=== PATIENT | female | born 1960 | race Caucasian/White ===

== ENCOUNTER 2018-02-03 15:37 | Inpatient (IN) | payer OTHER ==
--- NOTE | 2018-02-03 15:47 | PDOC ---
Rapid Medical Evaluation Chief Complaint: Shortness of Breath Time Seen by Provider: 02/03/18 15:40 Medical Evaluation: 02/03/18 15:40 I have performed a brief in-person evaluation of this patient. The patient presents with a chief complaint of: SOB with gradual worsening of color x 1 week. Pertinent physical exam findings: Jaundice, with weakness/ abd pain. Sent from Dr Garcia office for admission I have ordered the following: CXR, CBC, CMP, PT/INR/ type and screen The patient will proceed to the ED for further evaluation. 02/03/18 15:47 Discharge Disposition - Diagnosis Melena - Referrals - Patient Instructions - Post Discharge Activity
--- NOTE | 2018-02-03 15:57 | PDOC ---
History of Present Illness - General Chief Complaint: Shortness of Breath Stated Complaint: SOB (PCP SENT) Time Seen by Provider: 02/03/18 15:40 - History of Present Illness Initial Comments: 02/03/18 15:57 Ms. Jauregui is a 57 yo female w/ pmh of hiatal hernia who presents for evaluation of 3 week history of dyspnea on exertion, generalized weakness, and per family worsening color (reported yellowing of skin). Patient also complaining of abdominal pain. Patient was sent in by PCP (Brian) for admission for suspected GI bleed (positive stool guaic in office). Past History - Past Medical History Allergies/Adverse Reactions: Allergies Allergy/AdvReac Type Severity Reaction Status Date / Time No Known Allergies Allergy Verified 02/03/18 15:41 COPD: No - Suicide/Smoking/Psychosocial Hx Smoking History: Never smoked Review of Systems - Review of Systems Comments:: 02/03/18 16:21 GENERAL/CONSTITUTIONAL: No fever or chills. No weakness. HEAD, EYES, EARS, NOSE AND THROAT: No change in vision. No ear pain or discharge. No sore throat. CARDIOVASCULAR: No chest pain or shortness of breath RESPIRATORY: No cough, wheezing, or hemoptysis. GASTROINTESTINAL: +Abdominal pain; nausea as described w/out vomiting; dark stool over same timer period GENITOURINARY: No dysuria, frequency, or change in urination. MUSCULOSKELETAL: No joint or muscle swelling or pain. No neck or back pain. SKIN: No rash NEUROLOGIC: No headache, vertigo, loss of consciousness, or change in strength/ sensation. ENDOCRINE: No increased thirst. No abnormal weight change HEMATOLOGIC/LYMPHATIC: No anemia, easy bleeding, or history of blood clots. ALLERGIC/IMMUNOLOGIC: No hives or skin allergy. *Physical Exam - Vital Signs Last Vital Signs Temp Pulse Resp BP Pulse Ox 98 F 90 20 119/45 L 100 02/03/18 15:41 02/03/18 15:41 02/03/18 15:41 02/03/18 15:41 02/03/18 15:41 - Physical Exam Comments: 02/03/18 16:21 GENERAL: Awake, alert, and fully oriented, in no acute distress HEAD: No signs of trauma, normocephalic, atraumatic EYES: PERRLA, EOMI, sclera anicteric, conjunctiva clear ENT: Auricles normal inspection, hearing grossly normal, nares patent, oropharynx clear without exudates. Moist mucosa NECK: Normal ROM, supple, no lymphadenopathy, JVD, or masses LUNGS: No distress, speaks full sentences, clear to auscultation bilaterally HEART: Regular rate and rhythm, normal S1 and S2, no murmurs, rubs or gallops, peripheral pulses normal and equal bilaterally. ABDOMEN: Soft, nontender, normoactive bowel sounds. No guarding, no rebound. No masses EXTREMITIES: Normal inspection, Normal range of motion, no edema. No clubbing or cyanosis. NEUROLOGICAL: Cranial nerves II through XII grossly intact. Normal speech, normal gait, no focal sensorimotor deficits SKIN: Warm, Dry, normal turgor, no rashes or lesions noted. Moderate Sedation - Procedure Monitoring Vital Signs: Procedure Monitoring Vital Signs Temperature 98 F 02/03/18 15:41 Pulse Rate 90 02/03/18 15:41 Respiratory Rate 20 02/03/18 15:41 Blood Pressure 119/45 L 02/03/18 15:41 O2 Sat by Pulse Oximetry (%) 100 02/03/18 15:41 ED Treatment Course - LABORATORY CBC & Chemistry Diagram: 02/03/18 16:00 02/03/18 16:00 Medical Decision Making - Medical Decision Making 02/03/18 16:49 Ms. Jauregui is a 57 yo female w/ pmh as described who presents for evaluation of symptoms concerning for GI bleed. Patient noted to be extremely pale w/ generalized weakness; according workup started. Labs revealed anemia as below. Patient consented for blood transfusion and 2 units ordered. 02/03/18 17:06 Admitting patient for suspected GI bleed and GI f/u. Laboratory Results - last 24 hr 02/03/18 02/03/18 02/03/18 16:00 16:00 16:00 WBC 4.0 RBC 2.90 L Hgb 4.3 L* Hct 15.6 L MCV 53.8 L MCH 14.9 L MCHC 27.7 L RDW 21.4 H Plt Count 544 H MPV 8.8 Absolute Neuts (auto) 2.9 Neutrophils % 71.0 Lymphocytes % 20.8 Monocytes % 7.3 Eosinophils % 0.4 Basophils % 0.5 Nucleated RBC % 2 H Hypochromia 3+ Platelet Estimate Increased Platelet Comment No clumping noted Anisocytosis 3+ PT with INR 12.10 INR 1.03 Sodium 141 Potassium 4.1 Chloride 110 H Carbon Dioxide 21 Anion Gap 10 BUN 10 Creatinine 0.7 Creat Clearance w eGFR > 60 Random Glucose 104 Calcium 8.0 L Total Bilirubin 0.6 AST 11 L ALT 11 L Alkaline Phosphatase 72 Total Protein 7.1 Albumin 3.9 Crossmatch 02/03/18 16:00 WBC RBC Hgb Hct MCV MCH MCHC RDW Plt Count MPV Absolute Neuts (auto) Neutrophils % Lymphocytes % Monocytes % Eosinophils % Basophils % Nucleated RBC % Hypochromia Platelet Estimate Platelet Comment Anisocytosis PT with INR INR Sodium Potassium Chloride Carbon Dioxide Anion Gap BUN Creatinine Creat Clearance w eGFR Random Glucose Calcium Total Bilirubin AST ALT Alkaline Phosphatase Total Protein Albumin Crossmatch See Detail *DC/Admit/Observation/Transfer Diagnosis at time of Disposition: Melena GI bleed Qualifiers: GI bleed type/associated pathology: unspecified gastrointestinal hemorrhage type Qualified Code(s): K92.2 - Gastrointestinal hemorrhage, unspecified - Discharge Dispostion Decision to Admit order: Yes - Referrals Referrals: Reuben Torres MD [Primary Care Provider] - - Patient Instructions - Post Discharge Activity
[2018-02-03] MEDS ORDERED: PANTOPRAZOLE SODIUM 40 MG VIAL IVPUSH ONE (16:16)
[2018-02-03 16:18] LABS: BASO % 0.5 % (0-2.0); EOS % 0.4 % (0-4.5); HEMATOCRIT 15.6 % (32.4-45.2); LYMPH % 20.8 % (8-40); MCH 14.9 pg (25.7-33.7); MCHC 27.7 g/dl (32.0-36.0); MEAN CELL VOLUME 53.8 fl (80-96); MEAN PLT VOLUME 8.8 fl (7.5-11.1); MONO % 7.3 % (3.8-10.2); PLATELET COUNT 544 K/MM3 (134-434); RDW 21.4 % (11.6-15.6)
--- NOTE | 2018-02-03 16:19 | PDOC ---
Attending Attestation - HPI HPI: 02/03/18 16:24 57 yo female with a pmh of hiatal hernia who presents to the emergency department for melena and a 3 week history of LARSON. Patient reports being sent in by PCP for melena and generalized weakness. Patient reports abdominal pain. Patient was sent by Dr. Torres for suspected GI bleed after having positive stool guaic in office. Patient endorses nausea without vomiting. PCP: Dr. Torres <Daryn Sal - Last Filed: 02/03/18 16:27> - Resident Resident Name: Mendoza Moreau - ED Attending Attestation I have performed the following: I have examined & evaluated the patient, The case was reviewed & discussed with the resident, I agree w/resident's findings & plan, Exceptions are as noted - Physicial Exam PE: GENERAL: Awake, alert, and fully oriented, in no acute distress. +Pallor. HEAD: No signs of trauma EYES: PERRLA, EOMI, sclera anicteric, conjunctiva clear ENT: Auricles normal inspection, hearing grossly normal, nares patent, oropharynx clear without exudates. Moist mucosa NECK: Normal ROM, supple, no lymphadenopathy, JVD, or masses LUNGS: Breath sounds equal, clear to auscultation bilaterally. No wheezes, and no crackles HEART: Regular rate and rhythm, normal S1 and S2, no murmurs, rubs or gallops ABDOMEN: Soft, nontender, normoactive bowel sounds. No guarding, no rebound. No masses EXTREMITIES: Normal range of motion, no edema. No clubbing or cyanosis. No cords, erythema, or tenderness NEUROLOGICAL: Cranial nerves II through XII grossly intact. Normal speech, normal gait. Motor and sensation intact. SKIN: Warm, Dry, normal turgor, no rashes or lesions noted. - Medical Decision Making Pt with melena, positive stool guaiac as an outpaient. Sent by Dr. Torres for admission. Hb found to be 4.3. Will consult GI, transfuse, and admit. <Dyana Padilla - Last Filed: 02/03/18 16:31> Attestations - Attestations Documentation prepared by Daryn Sal, acting as medical field representative for Dyana Padilla MD. <Daryn Sal - Last Filed: 02/03/18 16:27>
[2018-02-03 16:20] LABS: HEMOGLOBIN 4.3 GM/dL (10.7-15.3)
[2018-02-03 16:30] LABS: INR 1.03 (0.83-1.09); PROTHROMBIN TIME (PATIENT) 12.1 SEC (9.7-13.0)
[2018-02-03] MEDS ORDERED: PANTOPRAZOLE SODIUM 40 MG/100 ML BAG IVPB ONE (16:33)
[2018-02-03 16:36] LABS: PLATELET ESTIMATE INCREASED
[2018-02-03 16:37] LABS: ANISOCYTOSIS 3+
[2018-02-03 16:42] LABS: ALBUMIN 3.9 g/dl (3.4-5.0); ALK PHOS 72 U/L (45-117); ANION GAP 10 MMOL/L (8-16); BILIRUBIN,TOTAL 0.6 mg/dL (0.2-1); BLOOD UREA NITROGEN 10 mg/dL (7-18); CHLORIDE 110 mmol/L (98-107); CO2 21 mmol/L (21-32); CREATININE 0.7 mg/dL (0.55-1.3); GLUCOSE,RANDOM 104 mg/dL (74-106); POTASSIUM 4.1 mmol/L (3.5-5.1); SGOT/AST 11 U/L (15-37); SGPT/ALT 11 U/L (13-61); SODIUM 141 mmol/L (136-145); TOT PROT 7.1 g/dl (6.4-8.2)
[2018-02-03] MEDS: PANTOPRAZOLE SODIUM 80 MG in SODIUM CHLORIDE 100 ML IVPB SCH (19:19)
[2018-02-03] MEDS ORDERED: BISACODYL 10 MG SUPP.RECT PR PRN (21:44)
--- NOTE | 2018-02-03 22:01 | HP ---
CHIEF COMPLAINT: LARSON, weakness PCP: Dr. Torres HISTORY OF PRESENT ILLNESS: 57 year old female with a PMH significant for Hiatal hernia, SBO, and colitis presented to the ED with several days of weakness, SOB, and abdominal pain. She reports several episodes of dark stool over the past week. At her PCP's office today, she had a +FOB at her PCP and was advised to go to the ED. Daughter provided translation and history. Patient reports she was diagnosed with a hiatal hernia approximately 5 years ago which made it difficult for her to swallow. She saw a GI specialist and had an endoscopy. They recommended surgical repair, but she lost her insurance coverage. The difficulty in swallowing has caused her to eat less and she has lost about 6 lbs in the past week. She has always had chronic GI issues with abdominal pain and constipation. She was told she had colitis as a child. Otherwise, she reports she is in very good health. Denies hemoptysis, QUINN, syncope, chest pain, palpitations, n/v, itchness or rash. Upon admission to the ED, labs notable for Hgb of 4.3. CT of abdomen and pelvis showed hiatal hernia but no other acute process. 2U PRBC was ordered and she was started on a protonix drip. Patient reports still feeling weak since her admission. Recent Travel: No PAST MEDICAL HISTORY: Hiatal hernia Anemia Colitis PAST SURGICAL HISTORY: Denies Social History: , 2 children, Wolof speaking Smoking: Never Alcohol: Social Drugs: Denies Family History: Grandmother: Stomach cancer Grandfather: [place] Father: Chronic lung problems Allergies No Known Allergies Allergy (Verified 02/03/18 15:41) HOME MEDICATIONS: Home Medications Medication Instructions Recorded NK [No Known Home Medication] 02/03/18 REVIEW OF SYSTEMS CONSTITUTIONAL: (+) generalized weakness, loss of appetite, weight loss (6 lbs since thanksgi) Absent: fever, chills, diaphoresis, , malaise, HEENT: Absent: rhinorrhea, nasal congestion, throat pain, throat swelling, difficulty swallowing, mouth swelling, ear pain, eye pain, visual changes CARDIOVASCULAR: Absent: chest pain, syncope, palpitations, irregular heart rate, lightheadedness , peripheral edema RESPIRATORY: (+) shortness of breath, dyspnea with exertion Absent: cough, orthopnea, wheezing, stridor, hemoptysis GASTROINTESTINAL: (+) abdominal pain, melena Absent: abdominal distension, nausea, vomiting, diarrhea, constipation, hematochezia GENITOURINARY: Absent: dysuria, frequency, urgency, hesitancy, hematuria, flank pain, genital pain MUSCULOSKELETAL: Absent: myalgia, arthralgia, joint swelling, back pain, neck pain SKIN: (+) pallor Absent: rash, itching HEMATOLOGIC/IMMUNOLOGIC: Absent: easy bleeding, easy bruising, lymphadenopathy, frequent infections ENDOCRINE: Absent: unexplained weight gain, unexplained weight loss, heat intolerance, cold intolerance NEUROLOGIC: Absent: headache, focal weakness or paresthesias, dizziness, unsteady gait, seizure, mental status changes, bladder or bowel incontinence PSYCHIATRIC: Absent: anxiety, depression, suicidal or homicidal ideation, hallucinations. PHYSICAL EXAMINATION Vital Signs - 24 hr 02/03/18 02/03/18 02/03/18 15:41 16:19 17:42 Temperature 98 F 97.9 F Pulse Rate 90 Pulse Rate [ 74 Left Radial] Respiratory 20 Rate Blood Pressure 119/45 L Blood Pressure 107/62 [Left Arm] O2 Sat by Pulse 100 100 99 Oximetry (%) GENERAL: Pale, fatigued, awake, alert, and fully oriented, in no acute distress. HEAD: Normal with no signs of trauma. EYES: Pupils equal, round and reactive to light, extraocular movements intact, sclera anicteric, conjunctiva clear. No lid lag. EARS, NOSE, THROAT: Nares patent, oropharynx clear without exudates. Moist mucous membranes. NECK: Normal range of motion, supple without lymphadenopathy, JVD, or masses. LUNGS: Breath sounds equal, clear to auscultation bilaterally. No wheezes, and no crackles. No accessory muscle use. HEART: Regular rate and rhythm, normal S1 and S2 without murmur, rub or gallop. ABDOMEN: Soft, nontender, not distended, normoactive bowel sounds, no guarding, no rebound, no masses. No hepatomegaly or splenomegaly. MUSCULOSKELETAL: Normal range of motion at all joints. No bony deformities or tenderness. No CVA tenderness. UPPER EXTREMITIES: 2+ pulses, warm, well-perfused. No cyanosis. No clubbing. No peripheral edema. LOWER EXTREMITIES: 2+ pulses, warm, well-perfused. No calf tenderness. No peripheral edema. NEUROLOGICAL: No facial droop, tongue midline, normal speech. Normal gait. PSYCHIATRIC: Cooperative. Good eye contact. Appropriate mood and affect. SKIN: Generalized palor, warm, dry, normal turgor, no rashes or lesions noted, normal capillary refill. Laboratory Results - last 24 hr 02/03/18 02/03/18 02/03/18 16:00 16:00 16:00 WBC 4.0 RBC 2.90 L Hgb 4.3 L* Hct 15.6 L MCV 53.8 L MCH 14.9 L MCHC 27.7 L RDW 21.4 H Plt Count 544 H MPV 8.8 Absolute Neuts (auto) 2.9 Neutrophils % 71.0 Lymphocytes % 20.8 Monocytes % 7.3 Eosinophils % 0.4 Basophils % 0.5 Nucleated RBC % 2 H Hypochromia 3+ Platelet Estimate Increased Platelet Comment No clumping noted Anisocytosis 3+ PT with INR 12.10 INR 1.03 Sodium 141 Potassium 4.1 Chloride 110 H Carbon Dioxide 21 Anion Gap 10 BUN 10 Creatinine 0.7 Creat Clearance w eGFR > 60 Random Glucose 104 Calcium 8.0 L Total Bilirubin 0.6 AST 11 L ALT 11 L Alkaline Phosphatase 72 Total Protein 7.1 Albumin 3.9 Blood Type Antibody Screen Crossmatch 02/03/18 02/03/18 02/03/18 16:00 16:40 21:07 WBC RBC Hgb Hct MCV MCH MCHC RDW Plt Count MPV Absolute Neuts (auto) Neutrophils % Lymphocytes % Monocytes % Eosinophils % Basophils % Nucleated RBC % Hypochromia Platelet Estimate Platelet Comment Anisocytosis PT with INR INR Sodium Potassium Chloride Carbon Dioxide Anion Gap BUN Creatinine Creat Clearance w eGFR Random Glucose Calcium Total Bilirubin AST ALT Alkaline Phosphatase Total Protein Albumin Blood Type O POSITIVE O POSITIVE O POSITIVE Antibody Screen Negative Crossmatch See Detail Imaging Abdominal/pelvis CT: No definite CT findings of acute pathology identified. Moderate to large hiatal hernia. ASSESSMENT/PLAN: 57 year old female with a PMH significant for Hiatal hernia, SBO, and colitis presented to the ED with several days of weakness and SOB, she had a +FOB at her PCP and was advised to go to the ED. She was found to have a Hgb of 4.3 and was given 2U PRBC. She was admitted to r/o GI bleed. R/o GI Bleed - Hx of Hiatial Hernia, visulalized on CT - Reports diagnosed with colitis in childhood - SBO in march - +FOB at PCP - Several days of dark stools - H&H 4.3/15.6 - 2U PRBC ordered - Monitor CBC - GI consult with Dr. Hobson pending Constipation - Ducolax qday Prophylaxis - DVT: Heparin SQ - GI: Protonix drip FEN - PO intake adequate - Replete as needed - Clear liquid diet until cleared by GI. Disp: Patient requires further inpatient monitoring. Visit type - Emergency Visit Emergency Visit: Yes ED Registration Date: 02/03/18 Care time: The patient presented to the Emergency Department on the above date and was hospitalized for further evaluation of their emergent condition. - New Patient This patient is new to me today: Yes Date on this admission: 02/04/18 - Critical Care Critical Care patient: No
[2018-02-04 10:12] LABS: HEMATOCRIT 22.7 % (32.4-45.2); MEAN CELL VOLUME 63.4 fl (80-96); MEAN PLT VOLUME 8.8 fl (7.5-11.1); PLATELET COUNT 351 K/MM3 (134-434); RBC 3.58 M/mm3 (3.60-5.2); RDW 29.7 % (11.6-15.6); WHITE BLOOD COUNT 4.2 K/mm3 (4.0-10.0)
[2018-02-04 10:16] LABS: HEMOGLOBIN 6.8 GM/dL (10.7-15.3)
[2018-02-04] MEDS: HEPARIN NA (PORCINE) 5,000 UNITS/ML 1ML VIAL SQ SCH ×2 (10:33→18:00)
[2018-02-04 10:53] LABS: ANION GAP 10 MMOL/L (8-16); BLOOD UREA NITROGEN 11 mg/dL (7-18); CHLORIDE 110 mmol/L (98-107); CO2 20 mmol/L (21-32); CREATININE 0.6 mg/dL (0.55-1.3); GLUCOSE,RANDOM 88 mg/dL (74-106); MAGNESIUM 2.3 mg/dL (1.8-2.4); SODIUM 140 mmol/L (136-145)
--- NOTE | 2018-02-04 13:24 | PN ---
Progress Note (short form) - Note Progress Note: Events noted Pt has h/o dark colored stools No stools today No nausea No abd pain family at bedside Vital Signs - 24 hr 02/03/18 02/03/18 02/03/18 15:41 16:19 17:07 Temperature 98 F 97.9 F 98.5 F Pulse Rate 90 77 Pulse Rate [ 74 Left Radial] Respiratory 20 18 Rate Blood Pressure 119/45 L 122/65 Blood Pressure 107/62 [Left Arm] O2 Sat by Pulse 100 100 99 Oximetry (%) 02/03/18 02/03/18 02/03/18 17:42 21:21 21:45 Temperature 97.9 F Pulse Rate Pulse Rate [ 73 Left Radial] Respiratory 18 Rate Blood Pressure Blood Pressure 122/74 [Left Arm] O2 Sat by Pulse 99 98 99 Oximetry (%) 02/03/18 02/04/18 22:00 05:41 Temperature 98.2 F 98.6 F Pulse Rate 69 Pulse Rate [ 80 Left Radial] Respiratory 18 18 Rate Blood Pressure 113/65 Blood Pressure 118/68 [Left Arm] O2 Sat by Pulse 99 Oximetry (%) Current Medications Generic Name Dose Route Start Last Admin Trade Name Freq PRN Reason Stop Dose Admin Bisacodyl 10 mg 02/03/18 21:44 Dulcolax Suppository - [facility] DAILY PRN CONSTIPATION Heparin Sodium (Porcine) 5,000 unit 02/04/18 02:00 02/04/18 10:33 Heparin - SQ Not Given Q8H-IV YING Pantoprazole Sodium 80 mg/ 100 mls @ 10 mls/hr 02/03/18 16:45 02/03/18 19:19 Sodium Chloride IVPB 10 mls/hr Q10H YING Administration 8 MG/HR Laboratory Results - last 24 hr 02/03/18 02/03/18 02/03/18 16:00 16:00 16:00 WBC 4.0 RBC 2.90 L Hgb 4.3 L* Hct 15.6 L MCV 53.8 L MCH 14.9 L MCHC 27.7 L RDW 21.4 H Plt Count 544 H MPV 8.8 Absolute Neuts (auto) 2.9 Neutrophils % 71.0 Lymphocytes % 20.8 Monocytes % 7.3 Eosinophils % 0.4 Basophils % 0.5 Nucleated RBC % 2 H Hypochromia 3+ Platelet Estimate Increased Platelet Comment No clumping noted Anisocytosis 3+ PT with INR 12.10 INR 1.03 Sodium 141 Potassium 4.1 Chloride 110 H Carbon Dioxide 21 Anion Gap 10 BUN 10 Creatinine 0.7 Creat Clearance w eGFR > 60 Random Glucose 104 Calcium 8.0 L Magnesium Total Bilirubin 0.6 AST 11 L ALT 11 L Alkaline Phosphatase 72 Total Protein 7.1 Albumin 3.9 Blood Type Antibody Screen Crossmatch 02/03/18 02/03/18 02/03/18 16:00 16:40 21:07 WBC RBC Hgb Hct MCV MCH MCHC RDW Plt Count MPV Absolute Neuts (auto) Neutrophils % Lymphocytes % Monocytes % Eosinophils % Basophils % Nucleated RBC % Hypochromia Platelet Estimate Platelet Comment Anisocytosis PT with INR INR Sodium Potassium Chloride Carbon Dioxide Anion Gap BUN Creatinine Creat Clearance w eGFR Random Glucose Calcium Magnesium Total Bilirubin AST ALT Alkaline Phosphatase Total Protein Albumin Blood Type O POSITIVE O POSITIVE O POSITIVE Antibody Screen Negative Crossmatch See Detail See Detail 02/04/18 02/04/18 09:50 09:50 WBC 4.2 RBC 3.58 L Hgb 6.8 L* Hct 22.7 L D MCV 63.4 L D MCH 19.0 L D MCHC 30.0 L RDW 29.7 H Plt Count 351 D MPV 8.8 Absolute Neuts (auto) Neutrophils % Lymphocytes % Monocytes % Eosinophils % Basophils % Nucleated RBC % Hypochromia Platelet Estimate Platelet Comment Anisocytosis PT with INR INR Sodium 140 Potassium 4.0 Chloride 110 H Carbon Dioxide 20 L Anion Gap 10 BUN 11 Creatinine 0.6 Creat Clearance w eGFR > 60 Random Glucose 88 Calcium 8.0 L Magnesium 2.3 Total Bilirubin AST ALT Alkaline Phosphatase Total Protein Albumin Blood Type Antibody Screen Crossmatch S1 S2 RRR pale Lungs clear Abd- soft, NT No edema PLAN s/p 2 units PRBC transfuse one more unit today GI eval protonix GTT Keep NPO Iv fluids may need surgical eval with regards to hiatal hernia Problem List - Problems (1) Hiatal hernia Code(s): K44.9 - DIAPHRAGMATIC HERNIA WITHOUT OBSTRUCTION OR GANGRENE (2) GI bleed Code(s): K92.2 - GASTROINTESTINAL HEMORRHAGE, UNSPECIFIED Qualifiers: GI bleed type/associated pathology: unspecified gastrointestinal hemorrhage type Qualified Code(s): K92.2 - Gastrointestinal hemorrhage, unspecified (3) Melena Code(s): K92.1 - MELENA (4) Acute blood loss anemia Code(s): D62 - ACUTE POSTHEMORRHAGIC ANEMIA
[2018-02-04] MEDS: PANTOPRAZOLE SODIUM 80 MG in SODIUM CHLORIDE 100 ML IVPB SCH (14:59)
[2018-02-04] MEDS ORDERED: ACETAMINOPHEN 325 MG TABLET (FP) PO ONE (16:45)
--- NOTE | 2018-02-04 17:02 | EKG ---
Test Reason : Blood Pressure : / mmHG Vent. Rate : 077 BPM Atrial Rate : 077 BPM P-R Int : 152 ms QRS Dur : 078 ms QT Int : 404 ms P-R-T Axes : 045 008 016 degrees QTc Int : 457 ms NORMAL SINUS RHYTHM NORMAL ECG NO PREVIOUS ECGS AVAILABLE Confirmed by MD DORENE, PETER ([id number]) on 02/04/2018 5:02:05 PM Referred By: Confirmed By:PETER CATHERINE MD
--- NOTE | 2018-02-04 18:22 | CON.GI ---
Consult Consult Specialty:: GI Reason for Consultation:: sever anemia - History of Present Illness History of Present Illness: 57 y/o female was admitted because of symptomatic anemia. She complains of vague epigastric pain associated with poor appetite, 20lb weight loss. Tonight she is asymptomatic - Alcohol/Substance Use Hx Alcohol Use: No - Smoking History Smoking history: Never smoked Home Medications - Allergies Allergies/Adverse Reactions: Allergies Allergy/AdvReac Type Severity Reaction Status Date / Time No Known Allergies Allergy Verified 02/03/18 15:41 - Home Medications Home Medications: Ambulatory Orders NK [No Known Home Medication] 02/03/18 Review of Systems - Review of Systems Constitutional: denies: No Symptoms, Chills, Diaphoresis, Fever, Lethargy, Loss of Appetite, Malaise, Night Sweats, Unintentional Wgt. Loss, Weakness, Other Eyes: denies: No Symptoms, Blind Spots, Blurred Vision, Double Vision, Eye Pain , Floaters, Photophobia, Recent Change in Vision, Other HENT: denies: No Symptoms, Difficult Swallowing, Ear Discharge, Ear Pain, Epistaxis, Gingival Bleeding, Hearing Loss, Mouth Swelling, Nasal Congestion, Ocular Prosthesis, Throat Pain, Toothache, Ringing in Ears, Other Neck: denies: No Symptoms, Decreased ROM, Lumps, Pain on Movement, Stiffness, Swollen Glands, Tenderness, Other Gastrointestinal: reports: Abdominal Pain, Melena Physical Exam-GI Vital Signs: Vital Signs Temperature 98.6 F 02/04/18 14:00 Pulse Rate 76 02/04/18 14:00 Respiratory Rate 20 02/04/18 14:00 Blood Pressure 118/74 02/04/18 14:00 O2 Sat by Pulse Oximetry (%) 99 02/04/18 09:00 Constitutional: Yes: Well Nourished Eyes: Yes: Conjunctiva Clear HENT: Yes: Atraumatic Neck: Yes: Trachea Midline Cardiovascular: Yes: Regular Rate and Rhythm Respiratory: Yes: CTA Bilaterally ...Palpate: Yes: Soft. No: Firm/Rigid, Guarding, Hepatomegaly, Mass, Pulsatile Mass, Splenomegaly, Tenderness, Tenderness, Epigastium Labs: CBC, BMP 02/04/18 09:50 02/04/18 09:50 INR, PTT INR 1.03 (0.83-1.09) 02/03/18 16:00 Problem List - Problems (1) GI bleed Assessment/Plan: R> for EGD ct of the abdomen if not done recently cea, ca19-9 ca125 Protonix 40mg daily Code(s): K92.2 - GASTROINTESTINAL HEMORRHAGE, UNSPECIFIED Qualifiers: GI bleed type/associated pathology: unspecified gastrointestinal hemorrhage type Qualified Code(s): K92.2 - Gastrointestinal hemorrhage, unspecified
[2018-02-04] MEDS: DEXTROSE 5%-NORMAL SALINE 1,000 ML IV SCH (19:25)
[2018-02-04 22:18] LABS: HEMATOCRIT 24.9 % (32.4-45.2); HEMOGLOBIN 8.2 GM/dL (10.7-15.3); MCH 21.9 pg (25.7-33.7); MCHC 32.7 g/dl (32.0-36.0); MEAN CELL VOLUME 66.9 fl (80-96); MEAN PLT VOLUME 8.9 fl (7.5-11.1); PLATELET COUNT 380 K/MM3 (134-434); RBC 3.72 M/mm3 (3.60-5.2); RDW 32.4 % (11.6-15.6); WHITE BLOOD COUNT 5.3 K/mm3 (4.0-10.0)
[2018-02-05] MEDS: HEPARIN NA (PORCINE) 5,000 UNITS/ML 1ML VIAL SQ SCH ×4 (02:53→21:40)
[2018-02-05] MEDS: PANTOPRAZOLE SODIUM 80 MG in SODIUM CHLORIDE 100 ML IVPB SCH ×2 (02:53→13:24)
[2018-02-05 07:28] LABS: HEMATOCRIT 25.7 % (32.4-45.2); HEMOGLOBIN 7.9 GM/dL (10.7-15.3); MCH 20.7 pg (25.7-33.7); MCHC 30.9 g/dl (32.0-36.0); PLATELET COUNT 329 K/MM3 (134-434); RBC 3.83 M/mm3 (3.60-5.2); RDW 31.8 % (11.6-15.6); WHITE BLOOD COUNT 4.5 K/mm3 (4.0-10.0)
--- NOTE | 2018-02-05 12:01 | PN ---
Progress Note (short form) - Note Progress Note: No stools today No nausea No abd pain family at bedside Vital Signs - 24 hr 02/04/18 02/04/18 02/05/18 20:00 21:00 05:52 Temperature 98.4 F 98.3 F Pulse Rate 71 66 Respiratory 20 20 Rate Blood Pressure 105/63 122/68 O2 Sat by Pulse 99 Oximetry (%) 02/05/18 02/05/18 02/05/18 09:00 14:00 14:41 Temperature 98.1 F 97.8 F Pulse Rate 67 67 Respiratory 18 20 Rate Blood Pressure 133/56 L 109/62 O2 Sat by Pulse 99 98 Oximetry (%) 02/05/18 02/05/18 02/05/18 14:56 15:11 15:26 Temperature Pulse Rate 66 62 62 Respiratory 18 18 18 Rate Blood Pressure 115/65 136/65 137/68 O2 Sat by Pulse 99 100 100 Oximetry (%) Current Medications Generic Name Dose Route Start Last Admin Trade Name Freq PRN Reason Stop Dose Admin Bisacodyl 10 mg 02/05/18 15:53 Dulcolax Suppository - [facility] DAILY PRN CONSTIPATION Heparin Sodium (Porcine) 5,000 unit 02/05/18 22:00 Heparin - SQ TID [facility] Dextrose/Sodium Chloride 1,000 mls @ 60 mls/hr 02/05/18 15:53 D5-Ns - IV ASDIR [facility] Pantoprazole Sodium 80 mg/ 100 mls @ 10 mls/hr 02/05/18 18:45 Sodium Chloride IVPB Q10H YING 8 MG/HR Metoclopramide HCl 5 mg 02/05/18 16:30 02/05/18 17:12 Reglan - PO 5 mg TIDAC YING Administration Laboratory Results - last 24 hr 02/04/18 02/05/18 21:30 06:20 WBC 5.3 4.5 RBC 3.72 3.83 Hgb 8.2 L 7.9 L Hct 24.9 L 25.7 L MCV 66.9 L 67.0 L MCH 21.9 L D 20.7 L MCHC 32.7 30.9 L RDW 32.4 H 31.8 H Plt Count 380 329 MPV 8.9 9.0 Manual Slide Review No clumping Platelet Comment Adequate S1 S2 RRR pale Lungs clear Abd- soft, NT No edema PLAN s/p 3 units PRBC EGD today GI eval noted protonix Keep NPO Iv fluids surgical eval noted Problem List - Problems (1) Hiatal hernia Code(s): K44.9 - DIAPHRAGMATIC HERNIA WITHOUT OBSTRUCTION OR GANGRENE (2) GI bleed Code(s): K92.2 - GASTROINTESTINAL HEMORRHAGE, UNSPECIFIED Qualifiers: GI bleed type/associated pathology: unspecified gastrointestinal hemorrhage type Qualified Code(s): K92.2 - Gastrointestinal hemorrhage, unspecified (3) Melena Code(s): K92.1 - MELENA (4) Acute blood loss anemia Code(s): D62 - ACUTE POSTHEMORRHAGIC ANEMIA
[2018-02-05] MEDS: DEXTROSE 5%-NORMAL SALINE 1,000 ML IV SCH ×2 (13:24→22:00)
--- NOTE | 2018-02-05 14:57 | CONSULT ---
- Consultation REQUESTING PROVIDER: CONSULT REQUEST: We have been asked to surgically evaluate this patient for GI bleed. PCP:Enmanuel Ayala HISTORY OF PRESENT ILLNESS: The patient is a 57 yo female who presented to the ER becasue of fatigue and weakness. She was seen by her PMD and had a +FOB test in the office. Upon admission her H&H was found to be low and she was tranfused PRBC. Today she is awaiting her endoscopy procedure. Her daughter is at bedside to help answer questions. She occasionally has epigastric pain and some nausea with an overall decreased oral intake because of pain with swallowing. No SOB/ CP. Weight loss of 13 pounds since . She had an upper and lower endoscopy approximately 4 years ago with the findings of a hiatal heria. PMHx: hiatal hernia, constipation PSHx: denies Home Medications Medication Instructions Recorded NK [No Known Home Medication] 02/03/18 Allergies Allergy/AdvReac Type Severity Reaction Status Date / Time No Known Allergies Allergy Verified 02/03/18 15:41 REVIEW OF SYSTEMS: CONSTITUTIONAL: Present: generalized weakness, malaise, loss of appetite, weight change CARDIOVASCULAR: Present: chest pain and eating and occasional palpations RESPIRATORY: Absent: cough, shortness of breath GASTROINTESTINAL: Present: abdominal pain, nausea, constipation GENITOURINARY: Absent: dysuria, hematuria, MUSCULOSKELETAL: Absent: myalgia, joint swelling, HEMATOLOGIC/IMMUNOLOGIC: Absent: easy bleeding, easy bruising NEUROLOGIC: Absent: seizure Present: occasional headahce this past week PHYSICAL EXAM: GENERAL: Awake, alert, and fully oriented, in no acute distress. HEAD: Normal with no signs of trauma. EYES: sclera anicteric, conjunctiva clear. NECK: Normal ROM, supple. LUNGS: Clear to auscultation bilat anteriorly. No wheezes, and no crackles. HEART: Regular rate and rhythm. No murmurs ABDOMEN: Soft, nontender, not distended, no guarding, no rebound, no masses. No organomegaly. Rectal: good rectal tone, no masses or gross blood with exam MUSCULOSKELETAL: Normal ROM at all joints. No bony deformities or tenderness. LOWER EXTREMITIES: 2+ pulses. No calf tenderness. No peripheral edema. PSYCH: Cooperative. Good eye contact. Appropriate mood and affect. Vital Signs Temperature 98.1 F 02/05/18 14:00 Pulse Rate 67 12/05/18 14:00 Respiratory Rate 18 02/05/18 14:00 Blood Pressure 133/56 L 02/05/18 14:00 O2 Sat by Pulse Oximetry (%) 99 02/05/18 09:00 Lab Results WBC 4.5 K/mm3 (4.0-10.0) 02/05/18 06:20 RBC 3.83 M/mm3 (3.60-5.2) 02/05/18 06:20 Hgb 7.9 GM/dL (10.7-15.3) L 02/05/18 06:20 Hct 25.7 % (32.4-45.2) L 02/05/18 06:20 MCV 67.0 fl (80-96) L 02/05/18 06:20 MCHC 30.9 g/dl (32.0-36.0) L 02/05/18 06:20 RDW 31.8 % (11.6-15.6) H 02/05/18 06:20 Plt Count 329 K/MM3 (134-434) 02/05/18 06:20 Sodium 140 mmol/L (136-145) 02/04/18 09:50 Potassium 4.0 mmol/L (3.5-5.1) 02/04/18 09:50 Chloride 110 mmol/L (98-107) H 02/04/18 09:50 Carbon Dioxide 20 mmol/L (21-32) L 02/04/18 09:50 Anion Gap 10 MMOL/L (8-16) 02/04/18 09:50 BUN 11 mg/dL (7-18) 02/04/18 09:50 Creatinine 0.6 mg/dL (0.55-1.3) 02/04/18 09:50 Random Glucose 88 mg/dL (74-106) 02/04/18 09:50 Calcium 8.0 mg/dL (8.5-10.1) L 02/04/18 09:50 Blood Type O POSITIVE 02/03/18 21:07 Antibody Screen Negative 02/03/18 16:00 INR 1.03 (0.83-1.09) 02/03/18 16:00 CT scan ABD/pelvis: No contrast. Large hiatal hernia Problem List - Problems (1) Acute blood loss anemia Assessment/Plan: Pt with chronic anemia and dark stools, s/p transfusion of PRBC. H&H remains stable no bowel movements since Saturday. No acute surgical abdomen on exam today. D/w Dr. Sterling and will continue to follow the patient after her endoscopy procedures today to determine if she needs any surgical intervention Continue IV protonix Diet as determined by her endoscopy results Follow H&H and transfuse as needed Code(s): D62 - ACUTE POSTHEMORRHAGIC ANEMIA Visit type - Case Type Case Type: ED Admission - Emergency Emergency Visit: Yes ED Registration Date: 02/03/18 Care time: The patient presented to the Emergency Department on the above date and was hospitalized for further evaluation of their emergent condition. - New patient This patient is new to me today: Yes Date on this admission: 02/05/18
[2018-02-05 16:24] VITALS: BMI 23.3
[2018-02-05] MEDS: METOCLOPRAMIDE HCL 10 MG TABLET (FP) PO SCH (17:12)
--- NOTE | 2018-02-05 20:29 | PN ---
Progress Note (short form) - Note Progress Note: 57 yr old female presenting with acute on chronic anemia Secondary to large paraesophageal hernia. Known history of Large paraesophageal hernia for the past 5 years and complainsts of dysphagia and odynophagia. EGD confirms the finding of large paraesophagela hernia as seen on CT, erosions and esophageal stricture. Discussed with the patient my recommendation for laparoscopic repair and fundoplication. Reviewed the associated risks and complications including bleeding , visceral perforation and recurrence. Timing of surgery as per Dr. Ayala as to when patient is optimized for surgery , either during this admission or in semi-elective fashion in the next 2 weeks.
[2018-02-05] MEDS: BISACODYL 10 MG SUPP.RECT RC PRN (21:41)
[2018-02-06] MEDS: PANTOPRAZOLE SODIUM 80 MG in SODIUM CHLORIDE 100 ML IVPB SCH ×3 (03:07→15:22)
[2018-02-06] MEDS: HEPARIN NA (PORCINE) 5,000 UNITS/ML 1ML VIAL SQ SCH (06:27)
[2018-02-06] MEDS: METOCLOPRAMIDE HCL 10 MG TABLET (FP) PO SCH ×3 (06:27→15:55)
[2018-02-06 08:57] LABS: HEMATOCRIT 25.5 % (32.4-45.2); HEMOGLOBIN 7.7 GM/dL (10.7-15.3); MCH 20.6 pg (25.7-33.7); MCHC 30.2 g/dl (32.0-36.0); MEAN CELL VOLUME 68.1 fl (80-96); PLATELET COUNT 312 K/MM3 (134-434); RBC 3.75 M/mm3 (3.60-5.2); RDW 31.6 % (11.6-15.6); WHITE BLOOD COUNT 4.6 K/mm3 (4.0-10.0)
[2018-02-06] MEDS: DEXTROSE 5%-NORMAL SALINE 1,000 ML IV SCH (11:12)
--- NOTE | 2018-02-06 12:34 | PN ---
Progress Note (short form) - Note Progress Note: dark stool today No nausea No abd pain family at bedside tolerating food Vital Signs - 24 hr 02/05/18 02/05/18 02/05/18 14:00 14:41 14:56 Temperature 98.1 F 97.8 F Pulse Rate 67 67 66 Respiratory 18 20 18 Rate Blood Pressure 133/56 L 109/62 115/65 O2 Sat by Pulse 98 99 Oximetry (%) 02/05/18 02/05/18 02/05/18 15:11 15:26 18:00 Temperature 98.1 F Pulse Rate 62 62 72 Respiratory 18 18 20 Rate Blood Pressure 136/65 137/68 142/67 O2 Sat by Pulse 100 100 Oximetry (%) 02/05/18 02/06/18 02/06/18 21:00 05:41 11:00 Temperature 98.7 F Pulse Rate 72 66 Respiratory 20 18 18 Rate Blood Pressure 115/65 125/80 O2 Sat by Pulse 100 Oximetry (%) Current Medications Generic Name Dose Route Start Last Admin Trade Name Freq PRN Reason Stop Dose Admin Bisacodyl 10 mg 02/05/18 15:53 02/05/18 21:41 Dulcolax Suppository - RC 10 mg DAILY PRN Administration CONSTIPATION Pantoprazole Sodium 80 mg/ 100 mls @ 10 mls/hr 02/05/18 18:45 02/06/18 03:07 Sodium Chloride IVPB 10 mls/hr Q10H YING Administration 8 MG/HR Metoclopramide HCl 5 mg 02/05/18 16:30 02/06/18 11:13 Reglan - PO 5 mg TIDAC YING Administration Laboratory Results - last 24 hr 02/06/18 06:45 WBC 4.6 RBC 3.75 Hgb 7.7 L Hct 25.5 L MCV 68.1 L MCH 20.6 L MCHC 30.2 L RDW 31.6 H Plt Count 312 MPV 9.0 S1 S2 RRR no pallor Lungs clear Abd- soft, NT No edema PLAN EGD findings noted-- large hiatal hernia, esophageal stricture and multiple erosions on gastric antrum pt and family would like to have surgery during this admission will transfuse PRBC today for medical optimization Do Chest Xray dc iv fluids as pt is eating does not sound volume overloaded on Protonix Gtt SCD Problem List - Problems (1) Hiatal hernia Code(s): K44.9 - DIAPHRAGMATIC HERNIA WITHOUT OBSTRUCTION OR GANGRENE (2) GI bleed Code(s): K92.2 - GASTROINTESTINAL HEMORRHAGE, UNSPECIFIED Qualifiers: GI bleed type/associated pathology: unspecified gastrointestinal hemorrhage type Qualified Code(s): K92.2 - Gastrointestinal hemorrhage, unspecified (3) Melena Code(s): K92.1 - MELENA (4) Acute blood loss anemia Code(s): D62 - ACUTE POSTHEMORRHAGIC ANEMIA
[2018-02-06] MEDS ORDERED: PT OWN MED DRAWER 7, Y5N ONE ×2 (12:47→12:50)
[2018-02-06] MEDS: BISACODYL 10 MG SUPP.RECT RC PRN (15:58)
[2018-02-07] MEDS: PANTOPRAZOLE SODIUM 80 MG in SODIUM CHLORIDE 100 ML IVPB SCH ×4 (01:42→13:24)
[2018-02-07] MEDS: METOCLOPRAMIDE HCL 10 MG TABLET (FP) PO SCH ×3 (06:51→17:18)
--- NOTE | 2018-02-07 06:53 | PN ---
Progress Note, Physician Chief Complaint: feeling well tolerating diet and still experiencing melena - Current Medication List Current Medications: Active Medications Bisacodyl (Dulcolax Suppository -) 10 mg RC DAILY PRN PRN Reason: CONSTIPATION Last Admin: 02/06/18 15:58 Dose: 10 mg Pantoprazole Sodium 80 mg/ (Sodium Chloride) 100 mls @ 10 mls/hr IVPB Q10H [facility] Last Admin: 02/07/18 01:42 Dose: 10 mls/hr Metoclopramide HCl (Reglan -) 5 mg PO TIDAC [facility] Last Admin: 02/06/18 15:55 Dose: 5 mg - Objective Vital Signs: Vital Signs Temperature 98.5 F 02/07/18 05:45 Pulse Rate 63 02/07/18 05:45 Respiratory Rate 20 02/07/18 05:45 Blood Pressure 115/64 02/07/18 05:45 O2 Sat by Pulse Oximetry (%) 98 02/06/18 21:00 Labs: CBC, BMP 02/06/18 06:45 02/04/18 09:50 INR, PTT INR 1.03 (0.83-1.09) 02/03/18 16:00 Problem List - Problems (1) GI bleed Code(s): K92.2 - GASTROINTESTINAL HEMORRHAGE, UNSPECIFIED Qualifiers: GI bleed type/associated pathology: unspecified gastrointestinal hemorrhage type Qualified Code(s): K92.2 - Gastrointestinal hemorrhage, unspecified (2) Hiatal hernia Code(s): K44.9 - DIAPHRAGMATIC HERNIA WITHOUT OBSTRUCTION OR GANGRENE (3) Melena Code(s): K92.1 - MELENA Assessment/Plan Large Hiatal hernia with associated esophageal stricture and ersions, most likely cause of bleeding Will discuss with GI whether colonoscopy is warranted Will get Upper GI seres for surgical planning and transfuse to an H/H closer to 12/31 prior to surgery
[2018-02-07 08:09] LABS: HEMATOCRIT 28.6 % (32.4-45.2); MCH 21.8 pg (25.7-33.7); MCHC 31.5 g/dl (32.0-36.0); MEAN CELL VOLUME 69.3 fl (80-96); MEAN PLT VOLUME 9.1 fl (7.5-11.1); PLATELET COUNT 310 K/MM3 (134-434); RBC 4.13 M/mm3 (3.60-5.2); RDW 31.6 % (11.6-15.6); WHITE BLOOD COUNT 4.4 K/mm3 (4.0-10.0)
[2018-02-07 08:19] LABS: ALBUMIN 3.1 g/dl (3.4-5.0); ALK PHOS 60 U/L (45-117); ANION GAP 9 MMOL/L (8-16); BILIRUBIN,TOTAL 0.7 mg/dL (0.2-1); BLOOD UREA NITROGEN 8 mg/dL (7-18); CALCIUM 7.7 mg/dL (8.5-10.1); CHLORIDE 111 mmol/L (98-107); CO2 22 mmol/L (21-32); CREATININE 0.6 mg/dL (0.55-1.3); GLUCOSE,RANDOM 85 mg/dL (74-106); POTASSIUM 3.8 mmol/L (3.5-5.1); SGOT/AST 11 U/L (15-37); SGPT/ALT 12 U/L (13-61); SODIUM 143 mmol/L (136-145); TOT PROT 5.6 g/dl (6.4-8.2)
--- NOTE | 2018-02-07 11:00 | PN ---
Progress Note (short form) - Note Progress Note: pt seen/ examined chart reviewed. awake/ comfortable feels much better denies pain afebrile Vital Signs Temp 97.6 F 02/07/18 09:31 Pulse 62 02/07/18 09:31 Resp 20 02/07/18 09:31 BP 125/73 02/07/18 09:31 Pulse Ox 98 02/06/18 21:00 Intake & Output 02/06/18 02/06/18 02/07/18 11:59 23:59 11:59 Intake Total 720 1770 520 Balance 720 1770 520 Intake: IV 720 420 D5-Ns - 1,000 ml @ 60 mls 720 420 /hr IV ASDIR YING Rx#: [id number] IVPB 100 120 Oral 900 400 Packed Cells 350 Other: Voiding Method Toilet Incontinent # Unmeasured Voids Void 2 Bowel Movement Yes # Bowel Movements 0 Active Medications Bisacodyl (Dulcolax Suppository -) 10 mg RC DAILY PRN PRN Reason: CONSTIPATION Last Admin: 02/06/18 15:58 Dose: 10 mg Pantoprazole Sodium 80 mg/ (Sodium Chloride) 100 mls @ 10 mls/hr IVPB Q10H [facility] Last Admin: 02/07/18 09:26 Dose: Not Given Metoclopramide HCl (Reglan -) 5 mg PO TIDAC [facility] Last Admin: 02/07/18 06:51 Dose: 5 mg CBC, BMP 02/07/18 06:30 02/07/18 06:30 upper gi series - today done- pending report Physical Exam S1 S2 RRR no pallor Lungs clear Abd- soft, NT No edema neuro - alert/ awake PLAN EGD -- large hiatal hernia, esophageal stricture and multiple erosions on gastric antrum pt and family would like to have surgery during this admission will transfuse another unit PRBC today for medical optimization on Protonix Gtt SCD Discussed with Surgeon also today discussed with pts daughter also as well as with pt Will follow Problem List - Problems (1) Hiatal hernia Code(s): K44.9 - DIAPHRAGMATIC HERNIA WITHOUT OBSTRUCTION OR GANGRENE (2) GI bleed Code(s): K92.2 - GASTROINTESTINAL HEMORRHAGE, UNSPECIFIED Qualifiers: GI bleed type/associated pathology: unspecified gastrointestinal hemorrhage type Qualified Code(s): K92.2 - Gastrointestinal hemorrhage, unspecified (3) Melena Code(s): K92.1 - MELENA (4) Acute blood loss anemia Code(s): D62 - ACUTE POSTHEMORRHAGIC ANEMIA
[2018-02-07 12:29] LABS: ALBUMIN 3.4 g/dl (3.4-5.0); ALK PHOS 64 U/L (45-117); ANION GAP 8 MMOL/L (8-16); BILIRUBIN,TOTAL 0.8 mg/dL (0.2-1); BLOOD UREA NITROGEN 8 mg/dL (7-18); CHLORIDE 110 mmol/L (98-107); CO2 23 mmol/L (21-32); CREATININE 0.6 mg/dL (0.55-1.3); GLUCOSE,RANDOM 88 mg/dL (74-106); POTASSIUM 4.2 mmol/L (3.5-5.1); SGOT/AST 12 U/L (15-37); SGPT/ALT 12 U/L (13-61); SODIUM 141 mmol/L (136-145); TOT PROT 6.2 g/dl (6.4-8.2)
[2018-02-07] MEDS ORDERED: FUROSEMIDE 40 MG/4 ML INJECTABLE VIAL IVPB ONE (15:00)
--- NOTE | 2018-02-07 16:51 | PATH ---
Surgical Pathology Report Patient Name: MARTA KINCAID [facility]. Rec. #: [id number] /Age/Gender: 1960 (Age: 57) / F Account: [id number] Location: [address] [place] [address]/[facility] Taken: 02/05/2018 Received: 02/06/2018 Reported: 02/07/2018 Physicians: Kerry Parsons M.D. Specimen(s) Received A: BX ANTRUM B: BX BODY ERYTHEMA Clinical History GI bleed Postoperative diagnosis: Large hiatal hernia, erosion in antrum Final Diagnosis A. STOMACH, ANTRUM, #1, EROSION, BIOPSY: GASTRIC ANTRAL MUCOSA WITH MILD CHRONIC GASTRITIS. IMMUNOHISTOCHEMICAL STAIN FOR H. PYLORI IS NEGATIVE. B. STOMACH, BODY, #2, EROSION, BIOPSY: GASTRIC BODY MUCOSA WITH MILD CHRONIC GASTRITIS AND FOCAL EROSION. IMMUNOHISTOCHEMICAL STAIN FOR H. PYLORI IS NEGATIVE. Electronically Signed Betty Johnson M.D. Gross Description A. Received in formalin, labeled "#1 biopsy erosion antrum," is a carbajal, irregular portion of soft tissue measuring 0.4 cm. in greatest dimension. The specimen is submitted in toto in one cassette. B. Received in formalin, labeled "#2 biopsy body erosion" is a carbajal, irregular portion of soft tissue measuring 0.7 cm. in greatest dimension. The specimen is submitted in toto in one cassette. 02/06/2018 saudi02/06/2018
--- NOTE | 2018-02-07 19:34 | HOSP ---
Subjective - Review of Symptoms Events since last encounter: Hospitalist Encounter Notified thru microblog by the RN, that the patient reported having SOB and chest pressure all day. Per the RN the pt. just completed her blood transfusion , and has been walking around eating an apple. Subjective: Assessment: 57 year old female with a PMH significant for Hiatal hernia, SBO, and colitis presented to the ED with several days of weakness and SOB, she had a +FOB at her PCP and was advised to go to the ED. She was found to have a Hgb of 4.3 and was given 2U PRBC. She was admitted to r/o GI bleed. Plan: EKG- stat Trop I- stat Pulmonary: Yes: Dyspnea Cardiovascular: Yes: Chest Pain Physical Examination Vital Signs: Vital Signs Temperature 97.9 F 02/07/18 19:18 Pulse Rate 60 02/07/18 19:18 Respiratory Rate 20 02/07/18 19:18 Blood Pressure 138/62 02/07/18 19:18 O2 Sat by Pulse Oximetry (%) 98 02/07/18 09:00 Labs: CBC, BMP 02/07/18 06:30 02/07/18 11:35 Hospitalist Encounter Outcome: Troponin I results- < 0.[address] or TWI Patient is resting comfortably, condition stable
[2018-02-08] MEDS: METOCLOPRAMIDE HCL 10 MG TABLET (FP) PO SCH ×3 (06:11→16:09)
[2018-02-08] MEDS ORDERED: PT OWN MED DRAWER 7, Y5N ONE ×2 (06:59→10:08)
[2018-02-08 08:17] LABS: BASO % 0.5 % (0-2.0); EOS % 2.1 % (0-4.5); HEMATOCRIT 34.1 % (32.4-45.2); HEMOGLOBIN 10.8 GM/dL (10.7-15.3); LYMPH % 25.8 % (8-40); MCH 22.7 pg (25.7-33.7); MCHC 31.8 g/dl (32.0-36.0); MEAN CELL VOLUME 71.4 fl (80-96); MEAN PLT VOLUME 8.7 fl (7.5-11.1); MONO % 8.4 % (3.8-10.2); NEUT % 63.2 % (42.8-82.8); PLATELET COUNT 315 K/MM3 (134-434); RBC 4.77 M/mm3 (3.60-5.2); RDW 30.6 % (11.6-15.6); WHITE BLOOD COUNT 5.1 K/mm3 (4.0-10.0)
[2018-02-08] MEDS: PANTOPRAZOLE SODIUM 80 MG in SODIUM CHLORIDE 100 ML IVPB SCH (11:36)
--- NOTE | 2018-02-08 14:58 | PN ---
Progress Note (short form) - Note Progress Note: No nausea No abd pain family at bedside tolerating food was sob after transfusion but currently feels well Vital Signs - 24 hr 02/07/18 02/07/18 02/07/18 18:00 19:18 21:00 Temperature 98.4 F 97.9 F Pulse Rate 62 60 Respiratory 20 20 18 Rate Blood Pressure 128/65 138/62 O2 Sat by Pulse 99 Oximetry (%) 02/07/18 02/07/18 02/08/18 21:34 21:40 06:00 Temperature 98.4 F Pulse Rate 68 68 Respiratory 18 18 Rate Blood Pressure 148/96 123/74 O2 Sat by Pulse 99 Oximetry (%) 02/08/18 02/08/18 07:52 09:00 Temperature 98.0 F Pulse Rate 82 Respiratory 18 Rate Blood Pressure 123/70 O2 Sat by Pulse 99 Oximetry (%) Current Medications Generic Name Dose Route Start Last Admin Trade Name Freq PRN Reason Stop Dose Admin Bisacodyl 10 mg 02/05/18 15:53 02/06/18 15:58 Dulcolax Suppository - RC 10 mg DAILY PRN Administration CONSTIPATION Pantoprazole Sodium 80 mg/ 100 mls @ 10 mls/hr 02/05/18 18:45 02/08/18 11:36 Sodium Chloride IVPB 10 mls/hr Q10H YING Administration 8 MG/HR Metoclopramide HCl 5 mg 02/05/18 16:30 02/08/18 10:06 Reglan - PO 5 mg TIDAC YING Administration Laboratory Results - last 24 hr 02/07/18 02/08/18 19:45 07:30 WBC 5.1 RBC 4.77 Hgb 10.8 Hct 34.1 D MCV 71.4 L MCH 22.7 L MCHC 31.8 L RDW 30.6 H Plt Count 315 MPV 8.7 Absolute Neuts (auto) 3.2 Neutrophils % 63.2 Lymphocytes % 25.8 D Monocytes % 8.4 Eosinophils % 2.1 D Basophils % 0.5 Nucleated RBC % 0 Troponin I < 0.02 S1 S2 RRR no pallor Lungs clear Abd- soft, NT No edema PLAN EGD findings noted-- large hiatal hernia, esophageal stricture and multiple erosions on gastric antrum pt and family would like to have surgery during this admission Hb /HCT better Chest Xray noted dc iv fluids as pt is eating does not sound volume overloaded on Protonix SCD Problem List - Problems (1) Hiatal hernia Code(s): K44.9 - DIAPHRAGMATIC HERNIA WITHOUT OBSTRUCTION OR GANGRENE (2) GI bleed Code(s): K92.2 - GASTROINTESTINAL HEMORRHAGE, UNSPECIFIED Qualifiers: GI bleed type/associated pathology: unspecified gastrointestinal hemorrhage type Qualified Code(s): K92.2 - Gastrointestinal hemorrhage, unspecified (3) Melena Code(s): K92.1 - MELENA (4) Acute blood loss anemia Code(s): D62 - ACUTE POSTHEMORRHAGIC ANEMIA
[2018-02-08] MEDS ORDERED: PEG3350/SOD SULF,BICARB,CL/KCL 4,000 ML SOLN.RECON PO ONE (15:49)
--- NOTE | 2018-02-08 15:56 | PN ---
GI Progress Note Subjective: no active bleeding, no abdominal pain, severe anemia, no active bleeding lesions by EGD will need to r/o right sided colonic lesion - Objective Vital Signs: Vital Signs Temperature 98.1 F 02/08/18 15:50 Pulse Rate 69 02/08/18 15:50 Respiratory Rate 18 02/08/18 15:50 Blood Pressure 112/59 L 02/08/18 15:50 O2 Sat by Pulse Oximetry (%) 99 02/08/18 09:00 Constitutional: Well Nourished Eyes: Yes: Conjunctiva Clear HENT: Yes: Atraumatic Neck: Yes: Supple Cardiovascular: Yes: Regular Rate and Rhythm Respiratory: Yes: CTA Bilaterally ...Palpate: Yes: Soft. No: Firm/Rigid, Guarding, Hepatomegaly, Mass, Pulsatile Mass, Splenomegaly, Tenderness Labs: CBC, BMP 02/08/18 07:30 02/07/18 11:35 INR, PTT INR 1.03 (0.83-1.09) 02/03/18 16:00 Problem List - Problems (1) GI bleed Assessment/Plan: R> for colonoscopy Code(s): K92.2 - GASTROINTESTINAL HEMORRHAGE, UNSPECIFIED Qualifiers: GI bleed type/associated pathology: unspecified gastrointestinal hemorrhage type Qualified Code(s): K92.2 - Gastrointestinal hemorrhage, unspecified
[2018-02-08] MEDS: SODIUM PHOSPHATE/NA BIPHOS 133 ML ENEMA PR SCH ×2 (16:16→21:02)
[2018-02-09] MEDS: SODIUM PHOSPHATE/NA BIPHOS 133 ML ENEMA PR SCH ×2 (01:00→06:33)
[2018-02-09] MEDS: PANTOPRAZOLE SODIUM 80 MG in SODIUM CHLORIDE 100 ML IVPB SCH ×6 (02:50→22:44)
[2018-02-09] MEDS: METOCLOPRAMIDE HCL 10 MG TABLET (FP) PO SCH ×2 (06:33→11:31)
[2018-02-09 07:38] LABS: HEMATOCRIT 35.1 % (32.4-45.2); HEMOGLOBIN 11.2 GM/dL (10.7-15.3); MCH 22.7 pg (25.7-33.7); MEAN PLT VOLUME 8.7 fl (7.5-11.1); PLATELET COUNT 331 K/MM3 (134-434); RBC 4.95 M/mm3 (3.60-5.2); RDW 31.2 % (11.6-15.6); WHITE BLOOD COUNT 5.2 K/mm3 (4.0-10.0)
[2018-02-09] MEDS ORDERED: HEPARIN NA (PORCINE) 5,000 UNITS/ML 1ML VIAL ONE (09:04)
[2018-02-09] MEDS ORDERED: LIDOCAINE HCL 1%, 10 MG/ML (20ML VIAL) ONE (09:04)
--- NOTE | 2018-02-09 16:54 | PN ---
Progress Note (short form) - Note Progress Note: No nausea No abd pain NPO for colonoscopy Vital Signs - 24 hr 02/08/18 02/08/18 02/09/18 20:29 21:00 05:39 Temperature 98.4 F 98.3 F Pulse Rate 60 56 L Respiratory 20 20 20 Rate Blood Pressure 120/86 126/74 O2 Sat by Pulse 99 Oximetry (%) 02/09/18 02/09/18 02/09/18 07:50 08:00 10:30 Temperature 98.2 F 98.0 F Pulse Rate 58 L 58 L Respiratory 16 16 Rate Blood Pressure 126/62 122/60 O2 Sat by Pulse 99 Oximetry (%) 02/09/18 02/09/18 02/09/18 12:42 12:55 13:10 Temperature 98.2 F 98.1 F Pulse Rate 60 57 L 57 L Respiratory 16 18 18 Rate Blood Pressure 111/57 L 120/60 112/56 L O2 Sat by Pulse 98 97 87 L Oximetry (%) 02/09/18 13:33 Temperature 98.1 F Pulse Rate 65 Respiratory 18 Rate Blood Pressure 124/75 O2 Sat by Pulse 97 Oximetry (%) Current Medications Generic Name Dose Route Start Last Admin Trade Name Freq PRN Reason Stop Dose Admin Pantoprazole Sodium 80 mg/ 100 mls @ 10 mls/hr 02/09/18 12:45 02/09/18 16:12 Sodium Chloride IVPB Not Given Q10H YING 8 MG/HR Laboratory Results - last 24 hr 02/03/18 02/09/18 16:00 06:40 WBC 5.2 RBC 4.95 Hgb 11.2 Hct 35.1 MCV 71.0 L MCH 22.7 L MCHC 32.0 RDW 31.2 H Plt Count 331 MPV 8.7 Blood Type O POSITIVE Antibody Screen Negative Crossmatch See Detail S1 S2 RRR no pallor Lungs clear Abd- soft, NT No edema PLAN EGD findings noted-- large hiatal hernia, esophageal stricture and multiple erosions on gastric antrum pt and family would like to have surgery during this admission Hb /HCT better Chest Xray noted for colonoscopy today SCD Problem List - Problems (1) Hiatal hernia Code(s): K44.9 - DIAPHRAGMATIC HERNIA WITHOUT OBSTRUCTION OR GANGRENE (2) GI bleed Code(s): K92.2 - GASTROINTESTINAL HEMORRHAGE, UNSPECIFIED Qualifiers: GI bleed type/associated pathology: unspecified gastrointestinal hemorrhage type Qualified Code(s): K92.2 - Gastrointestinal hemorrhage, unspecified (3) Melena Code(s): K92.1 - MELENA (4) Acute blood loss anemia Code(s): D62 - ACUTE POSTHEMORRHAGIC ANEMIA
[2018-02-10] MEDS: PANTOPRAZOLE SODIUM 80 MG in SODIUM CHLORIDE 100 ML IVPB SCH ×2 (06:14→17:23)
[2018-02-10 07:38] LABS: HEMATOCRIT 34.4 % (32.4-45.2); HEMOGLOBIN 11.6 GM/dL (10.7-15.3); MCH 23.7 pg (25.7-33.7); MCHC 33.8 g/dl (32.0-36.0); MEAN CELL VOLUME 70.2 fl (80-96); MEAN PLT VOLUME 8.7 fl (7.5-11.1); PLATELET COUNT 318 K/MM3 (134-434); RBC 4.89 M/mm3 (3.60-5.2); RDW 31.6 % (11.6-15.6); WHITE BLOOD COUNT 5.5 K/mm3 (4.0-10.0)
--- NOTE | 2018-02-10 11:03 | PN ---
Progress Note (short form) - Note Progress Note: No abd complaints. Denies n/v/f/c. Currently NPO as she is going for colonoscopy today. WIll f/u s/p procedure. Dr. Harper aware.
--- NOTE | 2018-02-10 12:16 | PN ---
Progress Note (short form) - Note Progress Note: pt seen/ examined chart reviewed awake/ comfortable denies pain daughter at bedside Vital Signs Temp 97.9 F 02/10/18 05:00 Pulse 66 02/10/18 05:00 Resp 18 02/10/18 05:00 BP 122/66 02/10/18 05:00 Pulse Ox 97 02/09/18 21:00 Intake & Output 02/09/18 02/10/18 02/10/18 23:59 11:59 23:59 Intake Total 360 Balance 360 Intake: IV 305 IVPB 55 Other: Voiding Method Toilet # Unmeasured Voids Void 1 1 Bowel Movement No Active Medications Pantoprazole Sodium 80 mg/ (Sodium Chloride) 100 mls @ 10 mls/hr IVPB Q10H YING Last Admin: 02/10/18 06:14 Dose: 10 mls/hr CBC, BMP 02/10/18 07:15 02/07/18 11:35 Physical Exam. S1 S2 RRR Lungs clear Abd- soft, NT No edema neuro - alert/ awake PLAN s/p EGD/ colonoscopy. Had colonoscopy done yesterday-- awaiting report surgical f/u noted will discuss with surgical team Anticipate surgery tomorrow as [per my previous conversation with Surgeon on saturday discussed with nursing staff also. will follow Problem List - Problems (1) Acute blood loss anemia Code(s): D62 - ACUTE POSTHEMORRHAGIC ANEMIA (2) GI bleed Code(s): K92.2 - GASTROINTESTINAL HEMORRHAGE, UNSPECIFIED Qualifiers: GI bleed type/associated pathology: unspecified gastrointestinal hemorrhage type Qualified Code(s): K92.2 - Gastrointestinal hemorrhage, unspecified (3) Hiatal hernia Code(s): K44.9 - DIAPHRAGMATIC HERNIA WITHOUT OBSTRUCTION OR GANGRENE
[2018-02-11] MEDS: PANTOPRAZOLE SODIUM 80 MG in SODIUM CHLORIDE 100 ML IVPB SCH (05:48)
[2018-02-11] MEDS ORDERED: ceFAZolin SODIUM 1 GM VIAL IVPB ONE (14:35)
[2018-02-11] MEDS ORDERED: fentaNYL CITRATE 250 MCG/5 ML VIAL ONE (15:05)
[2018-02-11] MEDS ORDERED: LIDOCAINE HCL/PF 2% SDV 5ML VIAL ONE (15:06)
[2018-02-11] MEDS ORDERED: PROPOFOL 20 ML ONE (15:06)
[2018-02-11] MEDS ORDERED: ROCURONIUM BROMIDE 50 MG/5 ML VIAL ONE ×2 (15:06→16:45)
[2018-02-11] MEDS ORDERED: DEXAMETHASONE SOD PHOSPHATE 4 MG/1 ML VIAL ONE (15:06)
[2018-02-11] MEDS ORDERED: MIDAZOLAM HCL 2 MG/2 ML SINGLE DOSE VIAL ONE (15:06)
[2018-02-11] MEDS ORDERED: ceFAZolin SODIUM 1 GM VIAL ONE (15:45)
[2018-02-11] MEDS ORDERED: BUPIVACAINE HCL/PF (5 MG/ML) 30 ML VIAL IJ ONE (15:55)
[2018-02-11] MEDS ORDERED: NEOSTIGMINE METHYLSULFATE 0.5 MG/ML - 10 ML MDV ONE (17:49)
[2018-02-11] MEDS ORDERED: GLYCOPYRROLATE 0.2 MG/1 ML VIAL ONE (17:51)
--- NOTE | 2018-02-11 18:10 | OP ---
Operative Note - Note: Operative Date: 02/11/18 Pre-Operative Diagnosis: paraesophageal hernia Operation: Repair of paraesophageal herina with Glory Fundoplication Findings: large paraesophageal hernia Type III Post-Operative Diagnosis: Same as Pre-op Surgeon: Stephen Harper Air Quality Manager: Melida Sanches Anesthesia: General Estimated Blood Loss (mls): 20 Drains & Tubes with Location: [facility] Operative Report Dictated: Yes
[2018-02-11] MEDS ORDERED: ONDANSETRON 4 MG/2 ML VIAL IVPUSH PRN ×2 (18:12→18:13)
[2018-02-11] MEDS ORDERED: oxyCODONE HCL 5 MG TABLET PO PRN (18:13)
[2018-02-11] MEDS ORDERED: PROMETHAZINE HCL 25 MG/1 ML VIAL IVPUSH PRN (18:13)
[2018-02-11] MEDS ORDERED: DEXAMETHASONE SOD PHOSPHATE 4 MG/1 ML VIAL IVPUSH PRN (18:14)
[2018-02-11] MEDS ORDERED: LACTATED RINGERS SOLUTION 1,000 ML IV SCH (18:15)
[2018-02-11] MEDS ORDERED: morphine CARPU-JECT 2 MG/1 ML DISP.SYRIN IVPUSH PRN (18:24)
[2018-02-11] MEDS ORDERED: MORPHINE SULFATE 2 MG/ML VIAL IVPUSH PRN (18:34)
[2018-02-11] MEDS ORDERED: ACETAMINOPHEN INJECTION 100 ML IVPB ONE (18:49)
[2018-02-11] MEDS: ACETAMINOPHEN 1000 MG/100 ML VIAL (NON FORMULARY) IVPB SCH (19:00)
[2018-02-11] MEDS ORDERED: METOCLOPRAMIDE HCL INJECTION 10 MG/2 ML VIAL ONE (19:28)
[2018-02-11] MEDS: METOCLOPRAMIDE HCL INJECTION 10 MG/2 ML VIAL IVPUSH SCH (19:30)
[2018-02-11] MEDS: LACTATED RINGERS SOLUTION 1,000 ML/1,000 ML INFUS.BAG IV SCH (20:31)
[2018-02-12] MEDS: ACETAMINOPHEN 1000 MG/100 ML VIAL (NON FORMULARY) IVPB SCH ×3 (00:29→12:54)
[2018-02-12] MEDS ORDERED: PANTOPRAZOLE SODIUM 80 MG in SODIUM CHLORIDE 100 ML IVPB SCH (00:45)
[2018-02-12] MEDS: DEXAMETHASONE SOD PHOSPHATE 4 MG/1 ML VIAL IVPUSH SCH ×3 (01:48→17:46)
[2018-02-12] MEDS: METOCLOPRAMIDE HCL INJECTION 10 MG/2 ML VIAL IVPUSH SCH ×3 (01:50→17:47)
[2018-02-12] MEDS: KETOROLAC TROMETHAMINE 30 MG/1 ML VIAL IVPUSH SCH ×3 (01:52→17:48)
[2018-02-12] MEDS: LACTATED RINGERS SOLUTION 1,000 ML/1,000 ML INFUS.BAG IV SCH ×3 (04:16→18:44)
[2018-02-12 06:40] LABS: BASO % 0.1 % (0-2.0); HEMATOCRIT 37.8 % (32.4-45.2); HEMOGLOBIN 11.9 GM/dL (10.7-15.3); LYMPH % 6.8 % (8-40); MCH 22.6 pg (25.7-33.7); MCHC 31.4 g/dl (32.0-36.0); MEAN PLT VOLUME 8.7 fl (7.5-11.1); MONO % 1.2 % (3.8-10.2); NEUT % 91.9 % (42.8-82.8); PLATELET COUNT 300 K/MM3 (134-434); RBC 5.25 M/mm3 (3.60-5.2); RDW 30.4 % (11.6-15.6); WHITE BLOOD COUNT 7.7 K/mm3 (4.0-10.0)
[2018-02-12 06:59] LABS: ANION GAP 9 MMOL/L (8-16); BLOOD UREA NITROGEN 11 mg/dL (7-18); CALCIUM 8.3 mg/dL (8.5-10.1); CHLORIDE 105 mmol/L (98-107); CO2 24 mmol/L (21-32); CREATININE 0.6 mg/dL (0.55-1.3); GLUCOSE,RANDOM 116 mg/dL (74-106); POTASSIUM 4.6 mmol/L (3.5-5.1); SODIUM 137 mmol/L (136-145)
--- NOTE | 2018-02-12 08:26 | PN ---
Progress Note (short form) - Note Progress Note: Post op day#1.S/P Laproscopic robotic hiatal hernie repair under Ga uneventful.Patient stable.No any anesthesia related problem.Patient DC from the anesthesia care.
--- NOTE | 2018-02-12 09:25 | OP ---
DATE OF OPERATION: 02/11/2018 PREOPERATIVE DIAGNOSIS: Large paraesophageal hernia with Emmanuel ulcers and gastrointestinal bleeding. POSTOPERATIVE DIAGNOSIS: Large paraesophageal hernia with Emmanuel ulcers and gastrointestinal bleeding. PROCEDURE: Laparoscopic robotic-assisted repair of paraesophageal hernia and Glory fundoplication. SURGEON: Stephen Harper M.D. TUBING MACHINE OPERATOR: Madeline Cook COMPLICATIONS: None. BLEEDING: Minimal. CONDITION: Patient tolerated the procedure well. INDICATION: This is a 49-year-old female who presents with a history of gastrointestinal bleeding and anemia and a long history of gastroesophageal reflux disease. Upper endoscopy and workup revealed a large paraesophageal hernia with erosions. Colonoscopy revealed some diverticular disease but no evidence of bleeding. Patient was referred for surgical evaluation and treatment of her large paraesophageal hernia. Risks and benefits discussed. Options discussed with the patient. She has chosen to proceed with laparoscopic robotic-assisted repair of paraesophageal hernia with Glory fundoplication. She agreed to proceed as planned and risks and benefits were discussed. DESCRIPTION OF PROCEDURE: In the operating room, she was placed in the supine position. After induction of sterile anesthesia, she was prepared and draped in the usual sterile fashion. The operation was begun with pressure of 15 mmHg. Next, under direct vision, a total of six were introduced, starting with an Optiview trocar in the right lower quadrant. Four robotic were introduced. Also, a liver retractor was placed in the subxiphoid position. The Da Shane robot was docked into place. Dissection was begun using a hook dissector to begin to divide the gastrohepatic ligament. Then, attention was directed toward the right solo where the plane between the hernia sac and the right solo was developed with use of the hook dissector. The mediastinum was entered and dissection was done, mostly bluntly, occasionally with the use of electrocautery, to begin to develop the sac and reduce the sac. The anterior dissection was done in similar fashion. Care was taken to identify both the anterior and and posterior and appropriately protect them. The left side dissection was performed again in similar fashion with the use of the vessel sealer to divide the short gastroc vessels and mobilize them toward the GE junction until the left solo of diaphragm was entered, identified, and the sac was again developed between the left solo and the diaphragm to complete the anterior and posterior dissection. The sac was complete reduced, the esophagus was mobilized as much as possible into the mediastinum in order to allow for an appropriate amount of intraabdominal esophagus. The hernia defect itself was quite large and was then repaired with a number 1 V-Loc nonabsorbable suture in a running fashion. It was used to close the hernia defect. Attempts at introducing the bougie transorally proved to be difficult and so it was abandoned. At this point, then, once the repair was completed, a Glory wrap 360 wrap loose fundoplication was performed with 3 sutures of 2-0 silk. Care was taken to guarantee appropriate spacing for proper drainage of the esophagus. Then, the wrap positioned and appeared to be loose. At this point, then, a Caleb-Tidwell drain was positioned with the tip into the mediastinum in order to drain out any accumulation of fluid. The Da Shane robot was undocked and at this point, the ports were removed. The cannula hole was closed with 4-0 Monocryl, Dermabond was applied, and the patient was transferred to the recovery room awake, alert and in stable condition, having tolerated the procedure well. Kerry [id number]
[2018-02-12 09:43] LABS: ANISOCYTOSIS 1+; MACROCYTOSIS 1+; OVALOCYTE 1+; PLATELET ESTIMATE NORMAL
--- NOTE | 2018-02-12 10:11 | SURG ---
Surgery Sand Control Worker Note Sand Control Worker: Melida Sanches PA-C Date of Service: 02/11/18 Diagnosis: paraesophageal hernia Procedure: Repair of paraesophageal herina with Glory Fundoplication I was present for the entirety of the operative procedure. For further detail, please refer to operative report.
[2018-02-12] MEDS: PANTOPRAZOLE SODIUM 40 MG VIAL IVPUSH SCH (11:41)
[2018-02-12] MEDS: HEPARIN NA (PORCINE) 5,000 UNITS/ML 1ML VIAL SQ SCH ×2 (11:44→21:13)
--- NOTE | 2018-02-12 12:10 | PN ---
Progress Note (short form) - Note Progress Note: pt seen by me yesterday and today S/p Glory fundoplication has abdominal soreness no nausea daughter at bedside Vital Signs - 24 hr 02/11/18 02/11/18 02/11/18 18:10 18:15 18:30 Temperature 98.3 F Pulse Rate 95 H 94 H 75 Respiratory 24 H 20 16 Rate Blood Pressure 156/83 155/87 163/78 O2 Sat by Pulse 100 100 100 Oximetry (%) 02/11/18 02/11/18 02/11/18 18:45 19:00 19:15 Temperature Pulse Rate 66 64 63 Respiratory 11 10 10 Rate Blood Pressure 165/76 158/79 153/76 O2 Sat by Pulse 100 100 100 Oximetry (%) 02/11/18 02/11/18 02/11/18 19:30 19:45 20:00 Temperature 98.3 F Pulse Rate 67 60 59 L Respiratory 10 11 10 Rate Blood Pressure 155/77 144/74 147/69 O2 Sat by Pulse 100 100 Oximetry (%) 02/11/18 02/11/18 02/11/18 20:33 21:00 23:14 Temperature 98.1 F 98.6 F Pulse Rate 60 68 Respiratory 17 16 20 Rate Blood Pressure 135/81 120/70 O2 Sat by Pulse 98 98 Oximetry (%) 02/12/18 02/12/18 05:00 09:11 Temperature 97.9 F 98.0 F Pulse Rate 66 52 L Respiratory 20 18 Rate Blood Pressure 118/66 124/91 O2 Sat by Pulse Oximetry (%) Current Medications Generic Name Dose Route Start Last Admin Trade Name Freq PRN Reason Stop Dose Admin Acetaminophen 1,000 mg 02/11/18 18:30 02/12/18 06:35 Ofirmev Injection - IVPB 02/12/18 12:31 1,000 mg Q6H YING Administration Dexamethasone Sodium Phosphate 4 mg 02/12/18 02:00 02/12/18 11:36 Decadron Injection - IVPUSH 4 mg Q8H-IV YING Administration Fentanyl 50 mcg 02/11/18 18:13 02/11/18 19:15 Sublimaze Injection - IVPUSH 50 mcg Q5M PRN Administration PAIN-PACU ORDER X 4 DOSES ONLY Heparin Sodium (Porcine) 5,000 unit 02/12/18 10:00 02/12/18 11:44 Heparin - SQ 5,000 unit BID YING Administration Lactated Ringer's 1,000 ml in 1,000 mls @ 125 mls/hr 02/11/18 18:30 02/12/18 04:16 Lactated Ringers Solution IV 125 mls/hr ASDIR YING Administration Ketorolac Tromethamine 30 mg 02/12/18 02:00 02/12/18 11:46 Toradol Injection - IVPUSH 02/16/18 01:59 30 mg Q8H-IV YING Administration Metoclopramide HCl 10 mg 02/11/18 20:00 02/12/18 11:39 Reglan Injection - IVPUSH 10 mg Q8H-IV YING Administration Morphine Sulfate 2 mg 02/11/18 18:34 Morphine Sulfate IVPUSH Q4H PRN PAIN LEVEL 6-10 Ondansetron HCl 4 mg 02/11/18 18:12 Zofran Injection IVPUSH Q6H PRN NAUSEA AND/OR VOMITING Pantoprazole Sodium 40 mg 02/12/18 10:00 02/12/18 11:41 Protonix Iv IVPUSH 40 mg DAILY YING Administration Laboratory Results - last 24 hr 02/11/18 02/12/18 02/12/18 14:13 06:15 06:15 WBC 7.7 RBC 5.25 H Hgb 11.9 Hct 37.8 MCV 72.0 L MCH 22.6 L MCHC 31.4 L RDW 30.4 H Plt Count 300 MPV 8.7 Absolute Neuts (auto) 7.1 Neutrophils % 91.9 H D Lymphocytes % 6.8 L D Monocytes % 1.2 L D Eosinophils % 0.0 D Basophils % 0.1 Nucleated RBC % 0 Sodium 137 Potassium 4.6 Chloride 105 Carbon Dioxide 24 Anion Gap 9 BUN 11 Creatinine 0.6 Creat Clearance w eGFR > 60 Random Glucose 116 H Calcium 8.3 L Blood Type O POSITIVE Antibody Screen Negative S1 S2 RRR no pallor Lungs clear Abd- soft, NT, no bowel sounds No edema PLAN s/p fundoplication NPO Iv fluids meds noted Heparin sc for DVT propylaxis SCD Problem List - Problems (1) Hiatal hernia Code(s): K44.9 - DIAPHRAGMATIC HERNIA WITHOUT OBSTRUCTION OR GANGRENE (2) GI bleed Code(s): K92.2 - GASTROINTESTINAL HEMORRHAGE, UNSPECIFIED Qualifiers: GI bleed type/associated pathology: unspecified gastrointestinal hemorrhage type Qualified Code(s): K92.2 - Gastrointestinal hemorrhage, unspecified (3) Melena Code(s): K92.1 - MELENA (4) Acute blood loss anemia Code(s): D62 - ACUTE POSTHEMORRHAGIC ANEMIA
--- NOTE | 2018-02-12 15:54 | PN ---
Progress Note (short form) - Note Progress Note: s/p repair of paraesophageal hernia with fundoplication POD1 Feeling well , denies pain VSS Exam soft nontender , Incision C/D/I PATITO serosanguinous Upper GI done ( reading pending )looks fine to me with no leak Advance diet to clear liquids \OOB Problem List - Problems (1) GI bleed Code(s): K92.2 - GASTROINTESTINAL HEMORRHAGE, UNSPECIFIED Qualifiers: GI bleed type/associated pathology: unspecified gastrointestinal hemorrhage type Qualified Code(s): K92.2 - Gastrointestinal hemorrhage, unspecified (2) Hiatal hernia Code(s): K44.9 - DIAPHRAGMATIC HERNIA WITHOUT OBSTRUCTION OR GANGRENE (3) Melena Code(s): K92.1 - MELENA
[2018-02-13] MEDS: KETOROLAC TROMETHAMINE 30 MG/1 ML VIAL IVPUSH SCH ×2 (01:50→09:24)
[2018-02-13] MEDS: METOCLOPRAMIDE HCL INJECTION 10 MG/2 ML VIAL IVPUSH SCH ×3 (01:50→17:26)
[2018-02-13] MEDS: DEXAMETHASONE SOD PHOSPHATE 4 MG/1 ML VIAL IVPUSH SCH ×3 (01:51→17:26)
[2018-02-13] MEDS: LACTATED RINGERS SOLUTION 1,000 ML/1,000 ML INFUS.BAG IV SCH (06:10)
[2018-02-13 07:22] LABS: HEMATOCRIT 34.7 % (32.4-45.2); HEMOGLOBIN 10.9 GM/dL (10.7-15.3); MCH 22.7 pg (25.7-33.7); MCHC 31.5 g/dl (32.0-36.0); MEAN CELL VOLUME 71.9 fl (80-96); MEAN PLT VOLUME 8.7 fl (7.5-11.1); PLATELET COUNT 273 K/MM3 (134-434); RBC 4.83 M/mm3 (3.60-5.2); RDW 30.6 % (11.6-15.6); WHITE BLOOD COUNT 8.6 K/mm3 (4.0-10.0)
[2018-02-13] MEDS: PANTOPRAZOLE SODIUM 40 MG VIAL IVPUSH SCH (09:25)
[2018-02-13] MEDS: HEPARIN NA (PORCINE) 5,000 UNITS/ML 1ML VIAL SQ SCH ×2 (09:25→22:10)
--- NOTE | 2018-02-13 09:59 | PN ---
Progress Note (short form) - Note Progress Note: POD#2 Pt tolerating clears, no nausea or emesis. No flatus or bowel movements. Vital Signs Period Temp Pulse Resp BP Sys/Diop Pulse Ox Last 24 Hr 97.3 F-98.6 F 56-75 19-20 121-133/63-76 97 GEN: A&0x3, NAD ABD: soft, non-distended, inc tenderness. Inc c/d/i with dermabond LE: no calf tenderness or swelling noted b/l the lower ext CBC, BMP 02/13/18 06:30 //18 06:15 A/p: 57 yo male s/p paraesophageal hernia repair Doing well clinically, tolerating clear liquids D/w Dr. Sterling and can advance the diet to fulls Ant to be removed OOB and ambulate as tolerated. DVT ppx with heparin SQ Problem List - Problems (1) Acute blood loss anemia Code(s): D62 - ACUTE POSTHEMORRHAGIC ANEMIA
--- NOTE | 2018-02-13 11:47 | PN ---
Progress Note (short form) - Note Progress Note: pt seen by me yesterday and today S/p Glory fundoplication has abdominal soreness no nausea daughter at bedside Vital Signs - 24 hr 02/12/18 02/12/18 02/12/18 14:12 19:24 21:00 Temperature 98.5 F 97.3 F L Pulse Rate 56 L 75 Respiratory 20 20 Rate Blood Pressure 122/68 121/63 O2 Sat by Pulse 97 Oximetry (%) 02/12/18 02/13/18 02/13/18 22:00 02:00 05:08 Temperature 98.6 F 98.3 F 97.7 F Pulse Rate 68 64 61 Respiratory 20 20 19 Rate Blood Pressure 133/68 130/68 127/76 O2 Sat by Pulse Oximetry (%) Current Medications Generic Name Dose Route Start Last Admin Trade Name Freq PRN Reason Stop Dose Admin Dexamethasone Sodium Phosphate 4 mg 02/12/18 02:00 02/13/18 09:25 Decadron Injection - IVPUSH 4 mg Q8H-IV YING Administration Fentanyl 50 mcg 02/11/18 18:13 02/11/18 19:15 Sublimaze Injection - IVPUSH 50 mcg Q5M PRN Administration PAIN-PACU ORDER X 4 DOSES ONLY Heparin Sodium (Porcine) 5,000 unit 02/12/18 10:00 02/13/18 09:25 Heparin - SQ 5,000 unit BID YING Administration Lactated Ringer's 1,000 ml in 1,000 mls @ 125 mls/hr 02/11/18 18:30 02/13/18 06:10 Lactated Ringers Solution IV 125 mls/hr ASDIR YING Administration Ketorolac Tromethamine 30 mg 02/12/18 02:00 02/13/18 09:24 Toradol Injection - IVPUSH 02/16/18 01:59 30 mg Q8H-IV YING Administration Metoclopramide HCl 10 mg 02/11/18 20:00 02/13/18 09:24 Reglan Injection - IVPUSH 10 mg Q8H-IV YING Administration Morphine Sulfate 2 mg 02/11/18 18:34 Morphine Sulfate IVPUSH Q4H PRN PAIN LEVEL 6-10 Ondansetron HCl 4 mg 02/11/18 18:12 Zofran Injection IVPUSH Q6H PRN NAUSEA AND/OR VOMITING Pantoprazole Sodium 40 mg 02/12/18 10:00 02/13/18 09:25 Protonix Iv IVPUSH 40 mg DAILY YING Administration Laboratory Results - last 24 hr 02/12/18 02/13/18 06:15 06:30 WBC 8.6 RBC 4.83 Hgb 10.9 Hct 34.7 MCV 71.9 L MCH 22.7 L MCHC 31.5 L RDW 30.6 H Plt Count 273 MPV 8.7 Neutrophils % (Manual) 91.1 H Band Neutrophils % 3.0 Lymphocytes % (Manual) 4.9 L Monocytes % (Manual) 1 L Eosinophils % (Manual) 0.0 Basophils % (Manual) 0.0 Myelocytes % (Man) 0 Promyelocytes % (Man) 0 Blast Cells % (Manual) 0 Metamyelocytes 0 Hypochromia 0 Platelet Estimate Normal Polychromasia 0 Poikilocytosis 3+ Anisocytosis 1+ Microcytosis 1+ Macrocytosis 1+ Ovalocytes 1+ S1 S2 RRR no pallor Lungs clear Abd- soft, NT, no bowel sounds No edema PLAN s/p fundoplication NPO Iv fluids meds noted Heparin sc for DVT propylaxis SCD Problem List - Problems (1) Hiatal hernia Code(s): K44.9 - DIAPHRAGMATIC HERNIA WITHOUT OBSTRUCTION OR GANGRENE (2) GI bleed Code(s): K92.2 - GASTROINTESTINAL HEMORRHAGE, UNSPECIFIED Qualifiers: GI bleed type/associated pathology: unspecified gastrointestinal hemorrhage type Qualified Code(s): K92.2 - Gastrointestinal hemorrhage, unspecified (3) Melena Code(s): K92.1 - MELENA (4) Acute blood loss anemia Code(s): D62 - ACUTE POSTHEMORRHAGIC ANEMIA
--- NOTE | 2018-02-13 15:17 | PN ---
Progress Note (short form) - Note Progress Note: PATITO drain removed at bedside with tip fully intact. 25cc of SS drainage in bulb at time of removal. Drain ostomy clean and dry with no active d/c. Patient tolerated the procedure well and was resting comfortably after procedure. Pressure dressing applied
--- NOTE | 2018-02-13 16:22 | PN ---
Progress Note (short form) - Note Progress Note: S/p repair of paraesophageal henia and fundoplication feeling well tolerating full liquids Exam benign incisions clean and dry PATITO dc's doing well plan Advance to soft mechanical diet DC planning Problem List - Problems (1) GI bleed Code(s): K92.2 - GASTROINTESTINAL HEMORRHAGE, UNSPECIFIED Qualifiers: GI bleed type/associated pathology: unspecified gastrointestinal hemorrhage type Qualified Code(s): K92.2 - Gastrointestinal hemorrhage, unspecified (2) Hiatal hernia Code(s): K44.9 - DIAPHRAGMATIC HERNIA WITHOUT OBSTRUCTION OR GANGRENE (3) Melena Code(s): K92.1 - MELENA
[2018-02-14] MEDS: DEXAMETHASONE SOD PHOSPHATE 4 MG/1 ML VIAL IVPUSH SCH ×2 (01:49→10:08)
[2018-02-14] MEDS: METOCLOPRAMIDE HCL INJECTION 10 MG/2 ML VIAL IVPUSH SCH ×2 (01:49→10:09)
--- NOTE | 2018-02-14 09:22 | PN ---
Progress Note (short form) - Note Progress Note: POD #3 s/p robotic repair of paraesophageal henia and fundoplication Doing well. Sitting in chair. Tolerating her FULL liquid diet. PATITO drain dc'd yesterday. Denies n/v/f/c, CP or SOB Last Vital Signs Temp Pulse Resp BP Pulse Ox 97.5 F L 63 18 118/70 98 //18 08:53 02/14/18 08:53 02/14/18 08:53 02/14/18 08:53 02/13/ 21:00 Gen: nad ABD: all surgical ports c/d/i LE: soft. NT bilat Problem List - Problems (1) Hiatal hernia Assessment/Plan: POD #3 s/p robotic repair of paraesophageal hernia and fundoplication Advacne to SOFT mechanical diet. Cont OOB Pain management PRN Cleared for DC from surgical service Pt to f/u with Dr. Harper in 2 weeks. Above plan discussed with my attending and agrees On behalf of Dr. Harper, thank you for the opportunity to participate in your patient's care. Code(s): K44.9 - DIAPHRAGMATIC HERNIA WITHOUT OBSTRUCTION OR GANGRENE
[2018-02-14] MEDS: HEPARIN NA (PORCINE) 5,000 UNITS/ML 1ML VIAL SQ SCH (10:10)
[2018-02-14] MEDS: PANTOPRAZOLE SODIUM 40 MG VIAL IVPUSH SCH (10:12)
--- NOTE | 2018-02-14 11:27 | DS ---
Physical Examination Vital Signs: Vital Signs Temperature 97.5 F L 02/14/18 08:53 Pulse Rate 63 02/14/18 08:53 Respiratory Rate 18 02/14/18 08:53 Blood Pressure 118/70 02/14/18 08:53 O2 Sat by Pulse Oximetry (%) 98 02/13/18 21:00 Findings/Remarks: pt seen/ examined chart reviewed awake/ comfortable tolerating diet feels well denies pain afebrile Constitutional: Yes: No Distress, Calm Eyes: Yes: Conjunctiva Clear Neck: Yes: Supple Cardiovascular: Yes: Regular Rate and Rhythm Respiratory: Yes: CTA Bilaterally Gastrointestinal: Yes: Soft Edema: No Neurological: Yes: Alert Psychiatric: Yes: Alert Labs: CBC, BMP 02/13/18 06:30 02/12/18 06:15 Discharge Summary Reason For Visit: GASTROINTESTINAL HEMORRHAGE; MELENA Current Active Problems Acute blood loss anemia (Acute) GI bleed (Acute) Hiatal hernia (Acute) Melena (Acute) Hospital Course: Admitted for severe anemia/ gi bleed transfused EGd-- showed gastric ulceration underwent repair of paraesophageal henia and fundoplication stable now will d/c on protonix avoid nsaids f/u with endo / surgery as advised f/u with pmd in one week discussed with pts daughter also. Condition: Stable - Instructions Diet, Activity, Other Instructions: Dr. Harper's Discharge Instructions Post Operative Instructions Physical activity Resume your normal everyday activity as tolerated no heavy lifting or exercise until seen by your surgeon. You may walk unlimited amounts of and climb stairs. You may resume driving the car when you feel safe and comfortable behind the wheel. Diet Continue with your soft diet. Eat healthy, high-fiber foods. Drink 6 to 8 glasses of liquid each day. This will assist in keeping your bowels are regular. Pain management You may take Tylenol or acetaminophen or Ibuprofen (for example, Motrin, Advil etc.) Any pain prescription medication ordered should be taken as prescribed for moderate to severe pain. Call Dr. Harper for any of the following: Severe pain not relieved by medication Fever of 101 or higher Excessive bleeding or drainage on dressing Call the office for a post operative appointment in 7 - 10 days. Referrals: Reuben Torres MD [Primary Care Provider] - Suresh Hobson MD [Staff Physician] - Disposition: HOME - Home Medications Comprehensive Discharge Medication List: Ambulatory Orders Pantoprazole Sodium [Protonix] 40 mg PO DAILY #30 tablet. 02/14/18
[2018-02-14 13:49] VITALS: BP 138/71; PULSE 51; TEMP 98.2
== END 2018-02-14 16:00 | disposition home or self-care (01) | DRG 220 ==
LOC: JER 15:37 → JERBED 17:07 → J6S 23:45
PROVIDERS: ADMIT Internal Medicine; ATTEND Internal Medicine
PROC: 30233N1 Transfusion of Nonautologous Red Blood Cells into Peripheral Vein, Percutaneous Approach (ICD-10-PCS; 2018-02-03)
PROC: 0DB68ZX Excision of Stomach, Via Natural or Artificial Opening Endoscopic, Diagnostic (ICD-10-PCS; 2018-02-05)
PROC: 0BQT4ZZ Repair Diaphragm, Percutaneous Endoscopic Approach (ICD-10-PCS; 2018-02-11)
PROC: 8E0W4CZ Robotic Assisted Procedure of Trunk Region, Percutaneous Endoscopic Approach (ICD-10-PCS; 2018-02-11)
PROC: 0DV44ZZ Restriction of Esophagogastric Junction, Percutaneous Endoscopic Approach (ICD-10-PCS; principal; 2018-02-11 14:00)
DX: K44.9 Diaphragmatic hernia without obstruction or gangrene (principal); K25.4 Chronic or unspecified gastric ulcer with hemorrhage; D62 Acute posthemorrhagic anemia; K22.2 Esophageal obstruction; Z80.0 Family history of malignant neoplasm of digestive organs; K59.00 Constipation, unspecified; R13.10 Dysphagia, unspecified; K92.1 Melena
CPT/HCPCS: 36415; 36430; 36511; 71046-TC-FY; 74176-TC; 74220-TC-FY; 74240-TC-FY; 80048; 80053; 83735; 84484; 85025; 85027; 85610; 86850; 86900; 86901; 86922; 87086; 88305-TC; 93005; 93010; 94010; 94760; 99285-25; J0131; J1644; P9038; P9058